=== PATIENT | male | born 1980 | race Caucasian/White ===

== ENCOUNTER 2024-07-09 17:51 | Emergency (ER) | payer OTHER ==
[~2024-07-09] VITALS: Ht 175.3 cm; Wt 73.0 kg
[2024-07-09 18:13] VITALS: BP 120/87; PULSE 78; RESP 16; TEMP 98.3; O2SAT 98
[2024-07-09] MEDS: KETOROLAC 30MG/ML VIAL IM STA (22:06)
[2024-07-09 23:21] LABS: BASOPHILS % 0.3 % (0.0-2.0); EOSINOPHILS % 2.3 % (0.0-5.0); HEMATOCRIT. 42.9 % (42.0-52.0); HEMOGLOBIN. 14.3 g/dL (14.0-18.0); LYMPHOCYTES % 43.2 % (20.0-50.0); MEAN CORPUSCULAR HEMOGLOBIN 30.1 pg (28.0-32.0); MEAN CORPUSCULAR HGB CONC 33.2 g/dL (31.0-37.0); MEAN CORPUSCULAR VOLUME 90.4 fL (80.0-94.0); MEAN PLATELET VOLUME 8.2 fl (7.4-10.4); NEUTROPHILS % 49.2 % (40.0-76.0); PLATELET 265 x1000/uL (130-400); RED BLOOD CELL COUNT 4.75 mill/uL (4.7-6.1); RED CELL DISTRIBUTION WIDTH 13.9 % (11.6-14.6); WHITE BLOOD COUNT 7.4 x1000/uL (4.5-11.0)
[2024-07-09 23:27] LABS: CHLORIDE 107 mEq/L (98-107); POTASSIUM 4.1 mEq/L (3.5-5.1); SODIUM 141 mEq/L (136-145)
[2024-07-09 23:28] LABS: CALCIUM 9.7 mg/dL (8.7-10.4); CARBON DIOXIDE 25 mEq/L (21-32)
[2024-07-09 23:33] LABS: GLUCOSE 100 mg/dL (70-105); UREA NITROGEN BLOOD 22 mg/dL (9-23)
[2024-07-09 23:58] LABS: TROPONIN I HIGH SENSITIVITY < 4 ng/L (3.0-53)
== END 2024-07-10 00:37 | disposition home or self-care (01) ==
LOC: ER 17:51
DX: R07.89 Other chest pain (principal); J45.909 Unspecified asthma, uncomplicated; K58.9 Irritable bowel syndrome, unspecified; M19.90 Unspecified osteoarthritis, unspecified site; F10.90 Alcohol use, unspecified, uncomplicated; Z90.49 Acquired absence of other specified parts of digestive tract; Y90.9 Presence of alcohol in blood, level not specified
CPT/HCPCS: 99284; 71045; 80048; 85025; 84484; 36415; 96372; J1885